=== PATIENT | female | born 1975 | race Caucasian/White ===

== ENCOUNTER → 2017-12-14 | Outpatient (CLI) | payer OTHER | LOC: BMCIMAGING 15:52 | PROVIDERS: ATTEND Podiatrist Foot & Ankle Surgery | DX: M19.071 Primary osteoarthritis, right ankle and foot (principal); M20.11 Hallux valgus (acquired), right foot ==

== ENCOUNTER → 2018-06-02 | Outpatient (CLI) | payer OTHER | LOC: BMCIMAGING 08:20 | PROVIDERS: ATTEND Podiatrist Foot & Ankle Surgery | DX: Z09 Encounter for follow-up examination after completed treatment for conditions other than malignant neoplasm (principal) ==

== ENCOUNTER → 2018-06-30 | Outpatient (CLI) | payer OTHER | LOC: BMCIMAGING 08:36 | PROVIDERS: ATTEND Podiatrist Foot & Ankle Surgery | DX: Z09 Encounter for follow-up examination after completed treatment for conditions other than malignant neoplasm (principal) ==

== ENCOUNTER → 2018-07-21 | Outpatient (CLI) | payer OTHER | LOC: BMCIMAGING 13:49 ==

== ENCOUNTER → 2018-08-18 | Outpatient (CLI) | payer OTHER | LOC: BMCIMAGING 14:39 ==